=== PATIENT | female | born 1965 | race Caucasian/White ===

== ENCOUNTER → 2016-12-23 | Outpatient (CLI) | payer BC ==
[2016-12-23 09:56] LABS: Basophils % (A) 1 %; CHCM 35.3; Eosinophils # (A) 0.2 k/uL (0-0.7); Eosinophils % (A) 3 %; HCT 38.4 % (34.0-46.0); HDW 2.86; Luc # (Auto) 0.12; Luc % (Auto) 2; Lymphocytes # (A) 1.5 k/uL (1.0-4.8); Lymphocytes % (A) 28 %; MCHC 33.9 g/dL (31.0-37.0); MCV 91.2 fL (80.0-100.0); Mean Platelet Volume 7.2; Monocytes # (A) 0.4 k/uL (0-1.0); Monocytes % (A) 7 %; Neutrophils # (A) 3.1 k/uL (1.3-7.7); Neutrophils % (A) 59 %; RBC 4.21 m/uL (3.80-5.40); RDW 14.2 % (11.5-15.5); WBC 5.2 k/uL (3.8-10.6); WBC (Perox) 5.36
[2016-12-23 10:12] LABS: ALT 51 U/L (9-52); AST 93 U/L (14-36); Alkaline Phosphatase 130 U/L (38-126); Anion Gap 10 mmol/L; Blood Urea Nitrogen 14 mg/dL (7-17); Calcium 9.6 mg/dL (8.4-10.2); Carbon Dioxide 25 mmol/L (22-30); Chloride 110 mmol/L (98-107); Cholesterol 163 mg/dL (<200); Glucose 110 mg/dL (74-99); HDL Cholesterol 31 mg/dL (40-60); Non-African American GFR(MDRD) >60 (>60 ml/min/1.73 sqM); Potassium 4.2 mmol/L (3.5-5.1); Sodium 145 mmol/L (137-145); Total Bilirubin 0.8 mg/dL (0.2-1.3); Total Protein 7.3 g/dL (6.3-8.2); Triglycerides 283 mg/dL (<150)
== END | disposition home or self-care (01) ==
LOC: LABWHC1 09:29
PROVIDERS: ATTEND Internal Medicine Cardiovascular Disease
DX: E78.5 Hyperlipidemia, unspecified (principal); R06.02 Shortness of breath; R63.5 Abnormal weight gain
CPT/HCPCS: 36415; 80053; 80061; 84439; 84443; 85025

== ENCOUNTER → 2017-01-14 | Outpatient (CLI) | payer BC ==
[2017-01-14 13:41] LABS: Bilirubin, Delta 0.2 mg/dL (0.0-0.2); Total Bilirubin 0.9 mg/dL (0.2-1.3); Total Protein 7.5 g/dL (6.3-8.2)
== END | disposition home or self-care (01) ==
LOC: LABWHC1 13:03
PROVIDERS: ATTEND Family Medicine
DX: R94.5 Abnormal results of liver function studies (principal)
CPT/HCPCS: 36415; 80076

== ENCOUNTER → 2017-03-28 | Outpatient (CLI) | payer BC ==
--- NOTE | 2017-03-31 07:59 | BD ---
EXAMINATION TYPE: MG DEXA axial skeleton. DATE OF EXAM: 03/28/2017 COMPARISON: NONE CLINICAL HISTORY: 51-year-old female ICD10 CODE: Z13.820 POST MENOPAUSAL Height: 68.5 Weight: 198 FRAX RISK QUESTIONS: Alcohol (3 or more units per day): NO Family History (Parent hip fracture): NO Glucocorticoids (More than 3mos): NO (Ex: prednisone, prednisolone, methylprednisolone, dexamethasone, and hydrocortisone). History of Fracture in Adulthood: NO Secondary Osteoporosis: NO 1. Type 1 Diabetes: NO 2. Hyperthyroidism: NO 3. Menopause before 45: NO 4. Malnutrition: NO 5. Chronic liver disease: NO Rheumatoid Arthritis: NO Current Tobacco Use: NO RISK FACTORS HISTORY OF: Active: YES Diet low in dairy products/other sources of calcium: NO Postmenopausal woman: TOTAL HYST AT AGE 49 YRS OLD Hyperparathyroidism: NO Adrenal Insufficiency: NO MEDICATIONS: Additional Medications: STATIN FOR CHOLESTEROL, HX OF RADIATION, CELEXA Additional History: LT BREAST CANCER, HX OF RADIATION, EXAM MEASUREMENTS: Bone mineral densitometry was performed using the [employer]. Bone mineral density as measured about the Lumbar spine is: ----- L1-L4(G/cm2): 1.437 T Score Values are as follows: ----- L1: 1.1 ----- L2: 2.3 ----- L3: 3.0 ----- L4: 1.3 ----- L1-L4: 2.0 Bone mineral density THIS IS HER FIRST BONE DENSITY TEST.......BASELINE STUDY Bone mineral density about the R hip (g/cm2): 1.081 Bone mineral density about the L hip (g/cm2): 1.139 T Score values are as follows: -----R Neck: 0.3 -----L Neck: 0.6 -----R Total: 0.6 -----L Total: 1.0 Bone mineral density BASELINE STUDY FRAX%'S: THERE IS A 3.5% CHANCE OF A MAJOR OSTEOPOROTIC FX AND A 0.0% FOR HIP FX......PROBABILITY OF FX IN 10 YRS TIME IMPRESSION: Normal (Values between +1 and -1 indicate normal bone mass). Consider repeating this study in 5 year s or sooner if there is some new clinical indication. NOTE: T-SCORE=SD OF THE YOUNG ADULT MEAN.
== END | disposition home or self-care (01) ==
LOC: RADBDWWP 07:17
PROVIDERS: ATTEND Obstetrics & Gynecology
DX: Z13.820 Encounter for screening for osteoporosis (principal)
CPT/HCPCS: 77080

== ENCOUNTER 2017-11-28 07:53 | Day surgery (SDC) | payer BC ==
[2017-11-25 15:22] VITALS: BMI 29.5
[~2017-11-28 07:53] MED LIST: LACTATED RINGERS 1,000 ML IV SCH
[2017-11-28 08:12] VITALS: RESP 18; TEMP 98
[2017-11-28] MEDS ORDERED: LACTATED RINGERS 1,000 ML IV ONE (08:19)
[2017-11-28] MEDS ORDERED: LIDOCAINE 1% 20 ML VIAL (10MG/ML) FOR IV START INTRAPLEUR ONE (08:20)
[2017-11-28] MEDS ORDERED: PROPOFOL 10 MG/ML 20 ML VIAL IV ONE (08:40)
--- NOTE | 2017-11-28 09:03 | P.PCN ---
Date of Procedure: 11/28/17 Procedure(s) Performed: BRIEF HISTORY: Patient is a 52-year-old pleasant white female, scheduled for an elective colonoscopy as a part of screening for colorectal neoplasia. PROCEDURE PERFORMED: Colonoscopy. PREOPERATIVE DIAGNOSIS: Screening for colon cancer. IV sedation per Anesthesia. PROCEDURE: After informed consent was obtained, the patient, was brought into the endoscopy unit. IV sedation was administered by Anesthesia under continuous monitoring. Digital rectal examination was normal. Initially the Olympus CF- 160 flexible video colonoscope was then inserted in the rectum, gradually advanced into the cecum without any difficulty. Careful examination was performed as the scope was gradually being withdrawn. Ileocecal valve and the appendiceal orifice were visualized and appeared normal. Prep was excellent. Mucosa of the cecum, ascending colon, transverse colon, descending colon, sigmoid colon, and rectum appeared normal. Retroflexion was performed in the rectum and no lesions were seen. The patient tolerated the procedure well. IMPRESSION: Normal-appearing colon from rectum to cecum with no evidence of colorectal neoplasia. RECOMMENDATIONS: Findings of this examination were discussed with the patient as well as a family. She was advised to have a repeat screening colonoscopy in 10 years.
[2017-11-28 09:45] VITALS: BP 133/85; PULSE 55
== END 2017-11-28 10:03 | disposition home or self-care (01) ==
LOC: ORWHC2ENDO 07:53
PROVIDERS: ATTEND Internal Medicine Gastroenterology
DX: Z12.11 Encounter for screening for malignant neoplasm of colon (principal); I25.10 Atherosclerotic heart disease of native coronary artery without angina pectoris; E78.5 Hyperlipidemia, unspecified; Z79.810 Long term (current) use of selective estrogen receptor modulators (SERMs); Z79.899 Other long term (current) drug therapy
CPT/HCPCS: J2704; G0121

== ENCOUNTER → 2018-02-25 | Outpatient (CLI) | payer BC ==
--- NOTE | 2018-02-25 21:13 | ECHOS ---
STRESS ECHOCARDIOGRAM DATE OF SERVICE: 02/25/2018 INDICATIONS: Dyspnea. MEDICATIONS: Atorvastatin, Lasix, Celexa, tamoxifen, Serenol. BASELINE HEART RATE: 71 BASELINE BLOOD PRESSURE: 106/52 MAXIMUM HEART RATE: 151 MAXIMUM BLOOD PRESSURE: 189/87 85% MPHR: 144 100% MPHR: 169 METS: 11.7 MAXIMUM STAGE REACHED: 4 TOTAL EXERCISE TIME: 10:00 CLINICAL INFORMATION: Baseline EKG revealed a normal sinus rhythm without significant ST-T changes. Patient walked on a standard [facility] protocol for a total duration of 10 minutes, achieved a maximal heart rate of 151 beats per minute, which is more than 85% of predicted maximal. She developed fatigue and shortness of breath. Rare PVCs were noted. There was no angina. EKG did not reveal any ST-segment changes to indicate ischemia. By EKG criteria, this is a negative stress test with good exercise capacity. Baseline echo images revealed normal wall motion and wall thickening of all segments. At peak exercise there was good augmentation of left ventricular wall motion and wall thickening of all segments, suggesting that there is no evidence of stress-induced ischemia on this study. FINAL IMPRESSION: 1. Good exercise capacity with a negative stress test by EKG criteria. 2. Normal stress echocardiogram. MMODL / IJN: [id number] /
== END | disposition home or self-care (01) ==
LOC: RADNMMAIN 09:47
PROVIDERS: ATTEND Family Medicine
DX: R06.09 Other forms of dyspnea (principal)
CPT/HCPCS: 93351

== ENCOUNTER → 2020-01-17 | Outpatient (CLI) | payer BC ==
--- NOTE | 2020-01-17 14:54 | CT ---
EXAMINATION TYPE: CT chest w con DATE OF EXAM: 01/17/2020 COMPARISON: None HISTORY: sarcoidosis CT DLP: 369.4 mGycm Automated exposure control for dose reduction was used. CONTRAST: CT scan of the chest is performed with IV Contrast, patient injected with 100 mL of Isovue 300. FINDINGS: LUNGS: Lungs are grossly clear. A few tiny peripheral areas of groundglass opacity likely represents atelectasis. No concerning parenchymal mass or nodule identified. No pleural effusion. No pneumothora x. The tracheobronchial tree is patent. MEDIASTINUM/SOFT TISSUES: No axillary, hilar, or mediastinal lymphadenopathy greater than 1 cm. Cardi ac size is normal. Calcified coronary artery disease. No pericardial effusion. No thoracic aortic ane urysm. UPPER ABDOMEN: No adrenal nodule. Small hiatal hernia. MUSCULOSKELETAL: No acute osseous abnormality. 1.2 cm nodular density of the left superior breast david ears related to region of scarring (7:85, 3:14). Left axillary surgical clips. No aggressive osseous destructive lesions. IMPRESSION: 1. No evidence of lymphadenopathy or suspicious pulmonary parenchymal disease. 2. Calcified coronary artery disease. 3. 1.2 cm nodular density of the left superior breast appears related to a region of scarring. Left axillary surgical clips are also seen. Correlate with surgical history and annual mammogram.
== END | disposition home or self-care (01) ==
LOC: RADCTMAIN 08:40
PROVIDERS: ATTEND Internal Medicine Rheumatology
DX: I25.10 Atherosclerotic heart disease of native coronary artery without angina pectoris (principal); N63.20 Unspecified lump in the left breast, unspecified quadrant; Z97.8 Presence of other specified devices
CPT/HCPCS: 71260; Q9967

== ENCOUNTER → 2020-11-07 | Outpatient (CLI) | payer BC ==
--- NOTE | 2020-11-07 07:48 | CT ---
EXAMINATION TYPE: CT iac wo con DATE OF EXAM: 11/07/2020 COMPARISON: None HISTORY: Chronic Otitis Media CT DLP: 150mGycm Automated exposure control for dose reduction was used. FINDINGS: The external auditory canals are patent bilaterally. There is moderate opacification of the left-sided mastoid air cells when compared to the well aerated the right-sided mastoid air cells. Th ere is soft tissue within the middle ear cavity with soft tissue and debris surrounding the ossicular chain on the left extending into the epitympanum. No bone destruction is identified. Thickening of t he left tympanic membrane noted. The scutum is preserved bilaterally. The cochlea and the semicircul ar canals are symmetric and unremarkable. Vestibular aqueduct and internal carotid canal appear unre markable. Temporomandibular joints are maintained bilaterally. IMPRESSION: 1. Findings compatible with chronic left-sided otitis media with underlying cholesteatoma difficult t o exclude. Associated chronic left-sided mastoiditis.
== END | disposition home or self-care (01) ==
LOC: RADCTMAIN 06:47
PROVIDERS: ATTEND Otolaryngology
DX: H70.92 Unspecified mastoiditis, left ear (principal)
CPT/HCPCS: 70480

== ENCOUNTER → 2022-10-29 | Outpatient (CLI) | payer BC ==
[2022-10-29 15:44] LABS: ALT 27 U/L (8-44); AST 24 U/L (13-35); Chol/HDL Ratio 5.66 Ratio; Creatine Kinase 91 U/L (26-186); LDL Cholesterol,Calculated 136.5 mg/dL (0.0-131.0)
== END | disposition home or self-care (01) ==
LOC: LABWHC1 10:01
PROVIDERS: ATTEND Internal Medicine Interventional Cardiology
DX: E78.5 Hyperlipidemia, unspecified (principal)
CPT/HCPCS: 36415; 80061; 82550; 84450; 84460

== ENCOUNTER → 2023-10-15 | Outpatient (CLI) | payer BC ==
--- NOTE | 2023-10-16 05:39 | MR ---
EXAMINATION TYPE: MR knee LT wo con DATE OF EXAM: 10/15/2023 COMPARISON: NONE HISTORY: Left knee pain and swelling x2+ years TECHNIQUE: Multiplanar, multisequence images of the knee is performed without IV contrast. FINDINGS: MEDIAL MENISCUS: Anterior and posterior horns are intact without tear. LATERAL MENISCUS: Anterior and posterior horns are intact without tear. CRUCIATE LIGAMENTS: The anterior and posterior cruciate ligaments are intact and unremarkable. COLLATERAL LIGAMENTS: The medial collateral ligament and lateral collateral ligament complex are inta ct and unremarkable. EXTENSOR MECHANISM: Visualized quadriceps and patellar tendons are intact. EFFUSION: Tiny suprapatellar joint effusion. POPLITEAL CYST: Moderate size popliteal/jim cyst is seen best coronal image 21. TRICOMPARTMENT SPACES: Mild tricompartment joint space loss. No significant spurring. CARTILAGE: Tricompartment articular cartilage is preserved. BONE MARROW SIGNAL: No focal abnormal marrow signal is appreciated. OTHER: No additional significant abnormality is appreciated. IMPRESSION: 1. No meniscal or ligamentous tear is seen. 2. Moderate size popliteal cyst.
== END | disposition home or self-care (01) ==
LOC: RADMRIMAIN 19:45
PROVIDERS: ATTEND Family Medicine
DX: M71.22 Synovial cyst of popliteal space [Baker], left knee (principal); M23.92 Unspecified internal derangement of left knee

== ENCOUNTER → 2024-04-01 | Outpatient (CLI) | payer BC ==
[2024-04-01 16:05] LABS: Chol/HDL Ratio 3.95 Ratio; LDL Cholesterol,Calculated 122.2 mg/dL (0.0-131.0)
== END | disposition home or self-care (01) ==
LOC: LABWHC1 09:20
PROVIDERS: ATTEND Internal Medicine Interventional Cardiology
DX: E78.5 Hyperlipidemia, unspecified (principal)
CPT/HCPCS: 36415; 80061